=== PATIENT | male | born 1945 | race Caucasian/White ===

== ENCOUNTER → 2019-03-09 | Outpatient (CLI) | payer MEDICARE, BC ==
[~2019-03-09] MED LIST: ALBU90OI61 INH; ASPI325 PO; ASPI81CH; ATOR40TA; BUPR150T2; Crestor20 MG; DIAZ5 PO; EZET10; Flonase 0.05% N16 GM; HYDACE5 PO; KRILL OIL500 MG; NAPR500 PO; NIAC500 PO; Neurontin300 MG PO; Nitrostat0.4 MG SL; POTCHL20ER; Valtrex1000 MG PO
== END | disposition home or self-care (01) ==
LOC: LAB SHORT 15:23 → PLD 15:23
DX: D48.5 Neoplasm of uncertain behavior of skin (principal)
CPT/HCPCS: 88305

== ENCOUNTER → 2020-05-28 | Outpatient (CLI) | payer MEDICARE, BC ==
[~2020-05-28] MED LIST changes: +ASPIR 8181 MG PO; +CLOP75 PO
== END | disposition home or self-care (01) ==
LOC: LAB SHORT 15:40 → PLD 15:40
DX: L72.0 Epidermal cyst (principal)
CPT/HCPCS: 88304

== ENCOUNTER 2020-08-09 07:14 | Day surgery (SDC) | payer MEDICARE, BC ==
[~2020-08-09] VITALS: Ht 170.2 cm; Wt 101.9 kg
[~2020-08-09 07:14] MED LIST changes: -ASPIR 8181 MG PO; -CLOP75 PO
[2020-08-09] MEDS ORDERED: ASPIR 8181 MG PO (07:40)
[2020-08-09] MEDS ORDERED: CLOP75 PO (07:41)
--- NOTE | 2020-08-09 08:40 | NUR ---
08/09/20 0840 Jemima Mojica [facility].DXH FROM PRE OP TO ROOM
== END 2020-08-09 09:18 | disposition home or self-care (01) ==
LOC: ORSCSDS 07:14
PROVIDERS: Orthopaedic Surgery
PROC: 01N50ZZ Release Median Nerve, Open Approach (ICD-10-PCS; principal; 2020-08-09 08:30)
DX: G56.01 Carpal tunnel syndrome, right upper limb (principal); I25.2 Old myocardial infarction; E66.9 Obesity, unspecified; Z68.35 Body mass index [BMI] 35.0-35.9, adult; Z79.82 Long term (current) use of aspirin; Z79.899 Other long term (current) drug therapy
CPT/HCPCS: J0690; J2250; J3010; J7120

== ENCOUNTER 2021-04-24 13:31 | Day surgery (SDC) | payer MEDICARE, BC ==
[~2021-04-24] VITALS: Ht 175.3 cm; Wt 104.2 kg
[~2021-04-24 13:31] MED LIST changes: +ASPIR 8181 MG PO; +CLOP75 PO
--- NOTE | 2021-04-24 14:35 | NUR ---
04/24/21 9344 Hanh Valentino TIME OUT TO VERIFY CORRECT PT, PROCEEDURE, LOCATION AND ALLERGIES. PT ELECTED TO PROCEED WITH THE SHOULDER BLOCK. RELAXING MEDICATION PROVIDED BY DR. LASSITER. VSS THROUGHOUTH PROCEEDURE. PT TOLERATED WELL.
== END 2021-04-24 17:01 | disposition home or self-care (01) ==
LOC: ORSCSDS 13:31
PROVIDERS: Orthopaedic Surgery
PROC: 0RNK4ZZ Release Left Shoulder Joint, Percutaneous Endoscopic Approach (ICD-10-PCS; principal; 2021-04-24 15:00)
PROC: 0LM24ZZ Reattachment of Left Shoulder Tendon, Percutaneous Endoscopic Approach (ICD-10-PCS; principal; 2021-04-24 15:00)
PROC: 0LS44ZZ Reposition Left Upper Arm Tendon, Percutaneous Endoscopic Approach (ICD-10-PCS; principal; 2021-04-24 15:00)
DX: M75.122 Complete rotator cuff tear or rupture of left shoulder, not specified as traumatic (principal); S46.002A Unspecified injury of muscle(s) and tendon(s) of the rotator cuff of left shoulder, initial encounter; M75.22 Bicipital tendinitis, left shoulder; M75.42 Impingement syndrome of left shoulder; M19.012 Primary osteoarthritis, left shoulder; I10 Essential (primary) hypertension; J44.9 Chronic obstructive pulmonary disease, unspecified; I25.10 Atherosclerotic heart disease of native coronary artery without angina pectoris; Z87.891 Personal history of nicotine dependence; E78.5 Hyperlipidemia, unspecified; Z79.02 Long term (current) use of antithrombotics/antiplatelets; Z79.82 Long term (current) use of aspirin; Z79.899 Other long term (current) drug therapy
CPT/HCPCS: C1713; J0171; J0690; J1100; J2250; J2405; J2704; J3010; J7120